=== PATIENT | female | born 1995 | race American Indian/Alaskan Native ===

== ENCOUNTER 2017-07-16 18:56 | Emergency (ER) | payer SELFPAY ==
[2017-07-16] MEDS ORDERED: TYLENOL ONE (19:12)
[2017-07-16] MEDS ORDERED: TYLENOL PO ONE (19:28)
[2017-07-16 19:40] LABS: Basophils % (Auto) 0.4 % (0.0-1.8); Eosinophils % (Auto) 0.7 % (0.0-4.3); Hematocrit 35.4 % (30.3-42.9); Hemoglobin 11.9 gm/dl (10.1-14.3); Mean Corpuscular HGB Conc 33 % (30-34); Mean Corpuscular Hemoglobin 26 pg (28-32); Mean Corpuscular Volume 79 fl (79-97); Red Blood Count 4.49 M/mm3 (3.65-5.03); Red Cell Distribution Width 14.9 % (13.2-15.2); White Blood Count 11.5 K/mm3 (4.5-11.0)
[2017-07-16 19:41] LABS: Platelet Count 173 K/mm3 (140-440)
[2017-07-16 19:50] LABS: INR 0.99 (0.87-1.13)
[2017-07-16 20:02] LABS: Albumin 4.3 g/dL (3.9-5); Alkaline Phosphatase 50 units/L (35-129); Anion Gap 21 mmol/L; Blood Urea Nitrogen 8 mg/dL (7-17); Calcium 9.1 mg/dL (8.4-10.2); Carbon Dioxide 23 mmol/L (22-30); Chloride 97.2 mmol/L (98-107); Glucose 97 mg/dL (65-100); Lipase 30 units/L (13-60); Potassium 4.3 mmol/L (3.6-5.0); Sodium 137 mmol/L (137-145); Total Protein 8.4 g/dL (6.3-8.2)
[2017-07-16 20:09] LABS: Alanine Aminotransferase 23 units/L (7-56)
[2017-07-16 21:20] LABS: Bacteria,Urine 1+ /HPF (Negative); Bilirubin,Urine NEG (Negative); Blood,Urine LG (Negative); Ketones,Urine 20 mg/dL (Negative); Leukocyte Esterase,Urine LG (Negative); Mucus,Urine FEW /HPF; Nitrite,Urine POS (Negative)
[2017-07-17] MEDS ORDERED: ZOFRAN IV ONE (00:20)
[2017-07-17] MEDS ORDERED: TORADOL IV ONE (00:20)
[2017-07-17] MEDS ORDERED: ROCEPHIN/NS 1 GM/50 ML 1 GM/50 ML BAG IV ONE (00:20)
[2017-07-17] MEDS ORDERED: NACL 0.9% 1000 ML 2,000 ML IV ONE (00:20)
[2017-07-17] MEDS ORDERED: MORPHINE IV ONE (00:20)
--- NOTE | 2017-07-17 00:22 | Emergency Department Report ---
ED General Adult HPI - General Chief complaint: Fever Stated complaint: LIGHTHEADED/DIZZINESS/NAUSEA/SORE THROAT Source: patient, RN notes reviewed Mode of arrival: Ambulatory Limitations: No Limitations - History of Present Illness Initial comments: This is a 22-year-old female, she is previously unknown to me, she does not have a local primary care doctor and she denies chronic medical conditions. She complained of sore throat, intravaginal ulcers, mild headache, nausea, generalized weakness, malaise and fatigue. There is no neck pain, there is no neck stiffness. There is no abdominal pain, there is no nausea, vomiting or diarrhea. No irritative or obstructive urinary symptoms. She has one sexual partner, she reports her partner wears condoms, she does not have a history of gonorrhea or chlamydia that she is aware of. -: Gradual Location: genitals Severity scale (0 -10): 4 Consistency: constant Improves with: none Worsens with: none Associated Symptoms: fever/chills, headaches, loss of appetite, malaise, weakness. denies: confusion, chest pain, cough, diaphoresis - Related Data Previous Rx's Medication Instructions Recorded Last Taken Type Ibuprofen [Motrin] 600 mg PO Q8H PRN #30 tablet 07/17/17 Unknown Rx Levofloxacin [Levaquin] 750 mg PO QDAY #10 tablet 07/17/17 Unknown Rx Metoclopramide [Reglan] 10 mg PO QID PRN #30 tablet 07/17/17 Unknown Rx Allergies Allergy/AdvReac Type Severity Reaction Status Date / Time No Known Allergies Allergy Verified 07/16/17 19:19 ED Review of Systems ROS: Stated complaint: LIGHTHEADED/DIZZINESS/NAUSEA/SORE THROAT Other details as noted in HPI Constitutional: fever, malaise, weakness Eyes: denies: vision change ENT: throat pain. denies: epistaxis Respiratory: denies: cough Cardiovascular: denies: chest pain Gastrointestinal: nausea Genitourinary: denies: abnormal menses Skin: lesions Neurological: headache, weakness Psychiatric: anxiety ED Past Medical Hx - Past Medical History Previous Medical History?: No - Surgical History Past Surgical History?: No - Social History Smoking Status: Never Smoker Substance Use Type: None - Medications Home Medications: Home Medications Medication Instructions Recorded Confirmed Last Taken Type Ibuprofen [Motrin] 600 mg PO Q8H PRN #30 tablet 07/17/17 Unknown Rx Levofloxacin [Levaquin] 750 mg PO QDAY #10 tablet 07/17/17 Unknown Rx Metoclopramide [Reglan] 10 mg PO QID PRN #30 tablet 07/17/17 Unknown Rx ED Physical Exam - General Limitations: No Limitations General appearance: alert, in no apparent distress - Head Head exam: Present: atraumatic, normocephalic - Eye Eye exam: Present: normal appearance, PERRL, EOMI. Absent: nystagmus - ENT ENT exam: Present: normal exam, normal orophraynx, mucous membranes moist, normal external ear exam - Neck Neck exam: Present: normal inspection, full ROM. Absent: tenderness, meningismus, lymphadenopathy - Respiratory Respiratory exam: Present: normal lung sounds bilaterally. Absent: respiratory distress, wheezes, rales, rhonchi, stridor, chest wall tenderness, accessory muscle use, decreased breath sounds, prolonged expiratory - Cardiovascular Cardiovascular Exam: Present: normal rhythm, tachycardia, normal heart sounds. Absent: systolic murmur, diastolic murmur, rubs, gallop - GI/Abdominal GI/Abdominal exam: Present: soft, normal bowel sounds. Absent: distended, tenderness, guarding, rebound, rigid, pulsatile mass - Speculum exam: Present: normal speculum exam, vaginal bleeding, other (on the internal vaginal vault, at 3:00 and 9:00, there are painful macerated lesions. There are no vesicles. It appeared to be ulcerated.) Bi-manual exam: Present: normal bi-manual exam, other (escorted by nurse tal brody). Absent: cervical motion tendernes, adnexal tenderness, adnexal mass - Extremities Exam Extremities exam: Present: normal inspection, full ROM, normal capillary refill. Absent: tenderness, pedal edema, joint swelling, calf tenderness - Back Exam Back exam: Present: normal inspection, full ROM. Absent: tenderness, CVA tenderness (R), CVA tenderness (L), muscle spasm, paraspinal tenderness, vertebral tenderness - Neurological Exam Neurological exam: Present: alert, oriented X3 - Psychiatric Psychiatric exam: Present: normal affect, normal mood - Skin Skin exam: Present: warm, dry, intact, normal color. Absent: rash ED Course Vital Signs 07/16/17 07/17/17 07/17/17 19:14 01:41 02:15 Temperature 102.7 F H 99.5 F 98.4 F Pulse Rate 115 H 110 H 106 H Respiratory 20 18 18 Rate Blood Pressure 137/87 129/72 127/72 [Right] O2 Sat by Pulse 100 100 100 Oximetry 07/17/17 04:05 Temperature 98 F Pulse Rate 106 H Respiratory 18 Rate Blood Pressure 127/79 [Right] O2 Sat by Pulse Oximetry ED Medical Decision Making - Lab Data Result diagrams: 07/16/17 19:27 07/16/17 19:27 Vital Signs 07/16/17 07/17/17 07/17/17 19:14 01:41 02:15 Temperature 102.7 F H 99.5 F 98.4 F Pulse Rate 115 H 110 H 106 H Respiratory 20 18 18 Rate Blood Pressure 137/87 129/72 127/72 [Right] O2 Sat by Pulse 100 100 100 Oximetry Labs 07/16/17 07/16/17 07/16/17 19:27 19:27 19:27 WBC 11.5 H RBC 4.49 Hgb 11.9 Hct 35.4 MCV 79 MCH 26 L MCHC 33 RDW 14.9 Plt Count 173 Lymph % (Auto) 9.4 L [place] % (Auto) 7.0 Eos % (Auto) 0.7 Baso % (Auto) 0.4 Lymph # 1.1 L [place] # 0.8 Eos # 0.1 Baso # 0.0 Seg Neutrophils % 82.5 H Seg Neutrophils # 9.5 H PT 13.6 INR 0.99 VBG pH Sodium 137 Potassium 4.3 Chloride 97.2 L Carbon Dioxide 23 Anion Gap 21 BUN 8 Creatinine 0.5 L Estimated GFR > 60 BUN/Creatinine Ratio 16.00 Glucose 97 Lactic Acid Calcium 9.1 Total Bilirubin 1.10 AST 9 ALT 23 Alkaline Phosphatase 50 Total Protein 8.4 H Albumin 4.3 Albumin/Globulin Ratio 1.0 Lipase 30 HCG, Qual Urine Color Urine Turbidity Urine pH Ur Specific [place] Urine Protein Urine Glucose (UA) Urine Ketones Urine Blood Urine Nitrite Urine Bilirubin Urine Urobilinogen Ur Leukocyte Esterase Urine WBC (Auto) Urine RBC (Auto) U Epithel Cells (Auto) Urine Bacteria (Auto) Urine Mucus 07/16/17 07/16/17 07/16/17 19:27 19:27 19:27 WBC RBC Hgb Hct MCV MCH MCHC RDW Plt Count Lymph % (Auto) [place] % (Auto) Eos % (Auto) Baso % (Auto) Lymph # [place] # Eos # Baso # Seg Neutrophils % Seg Neutrophils # PT INR VBG pH 7.431 H Sodium Potassium Chloride Carbon Dioxide Anion Gap BUN Creatinine Estimated GFR BUN/Creatinine Ratio Glucose Lactic Acid 0.90 Calcium Total Bilirubin AST ALT Alkaline Phosphatase Total Protein Albumin Albumin/Globulin Ratio Lipase HCG, Qual Negative Urine Color Urine Turbidity Urine pH Ur Specific [place] Urine Protein Urine Glucose (UA) Urine Ketones Urine Blood Urine Nitrite Urine Bilirubin Urine Urobilinogen Ur Leukocyte Esterase Urine WBC (Auto) Urine RBC (Auto) U Epithel Cells (Auto) Urine Bacteria (Auto) Urine Mucus 07/16/17 20:30 WBC RBC Hgb Hct MCV MCH MCHC RDW Plt Count Lymph % (Auto) [place] % (Auto) Eos % (Auto) Baso % (Auto) Lymph # [place] # Eos # Baso # Seg Neutrophils % Seg Neutrophils # PT INR VBG pH Sodium Potassium Chloride Carbon Dioxide Anion Gap BUN Creatinine Estimated GFR BUN/Creatinine Ratio Glucose Lactic Acid Calcium Total Bilirubin AST ALT Alkaline Phosphatase Total Protein Albumin Albumin/Globulin Ratio Lipase HCG, Qual Urine Color Yellow Urine Turbidity Slightly-cloudy Urine pH 5.0 Ur Specific [place] 1.018 Urine Protein 30 mg/dl Urine Glucose (UA) Neg Urine Ketones 20 Urine Blood Lg Urine Nitrite Pos Urine Bilirubin Neg Urine Urobilinogen 4.0 Ur Leukocyte Esterase Lg Urine WBC (Auto) 127.0 H Urine RBC (Auto) 102.0 U Epithel Cells (Auto) 6.0 Urine Bacteria (Auto) 1+ Urine Mucus Few - Medical Decision Making Differential diagnosis: Urinary tract infection, viral syndrome, pharyngitis, influenza, pyelonephritis Assessment and plan: 22-year-old female with multiple nonspecific complaints, fever, headache, malaise, painful intravaginal lesions. She does not endorse irritative or obstructive urinary symptoms, but her urinalysis is strongly positive/suggestive of urinary tract action. Intravaginal lesions are not consistent with vesicles, they're somewhat painful. may be atypical STD. The patient was treated aggressively with IV fluids, pain medication, nausea medication and she is loaded with 1 g of ceftriaxone. She felt much improved, her tachycardia resolved, and she was able to tolerate liquid feeds. She has intermittent episodes of tachycardia, but she is quite anxious. Clinically doubt bacteremia given her current clinical presentation, blood cultures were ordered prior to my personal evaluation. I do not suspect bacteremia, I do not suspect meningitis based on her history and physical exam, she has no neck pain or neck stiffness, and there are no meningeal signs. She is reliable, she endorses that she will follow up closely as an outpatient. She will be discharged with pain medication, nausea medication, antibiotics , instructions to closely follow up as an outpatient. Critical care attestation.: If time is entered above; I have spent that time in minutes in the direct care of this critically ill patient, excluding procedure time. ED Disposition Clinical Impression: Acute febrile illness Disposition: DC- TO HOME OR SELFCARE Is pt being admited?: No Does the pt Need Aspirin: No Condition: Stable Instructions: Acute Pyelonephritis (ED) Additional Instructions: Cultures were sent today, results will be available in the next 3-5 days. Please have a primary care doctor contact the medical records department to obtain culture results. Take pain medication, nausea medication, antibiotic therapy as directed. Follow up with an outpatient primary care doctor within the next 3-5 days, or outpatient microsoft application developer within the next 3-5 days. The vaginal lesions are nonspecific, they may be an atypical sexually transmitted disease, therefore it is very important to follow-up with an outpatient primary care doctor, microsoft application developer or the health department. Refrain from sexual activity with any partners until cleared by her primary care doctor or microsoft application developer. do not consume alcohol while taking the medication. Return to the ER right away with new pain, worsened pain, migration of pain, fevers, chills, intractable nausea or vomiting, confusion, inability to tolerate liquid feeds. Prescriptions: Ibuprofen [Motrin] 600 mg PO Q8H PRN #30 tablet PRN Reason: Pain Levofloxacin [Levaquin] 750 mg PO QDAY #10 tablet Metoclopramide [Reglan] 10 mg PO QID PRN #30 tablet PRN Reason: Nausea Referrals: PRIMARY CAREMD [Primary Care Provider] - 3-5 Days [facility] [Provider Group] - 3-5 Days [facility] - 3-5 Days [facility] [Provider Group] - [facility] Forms: Accompanied Note, Work/School Release Form(ED)
[2017-07-17] MEDS ORDERED: TYLENOL PO ONE (01:50)
[2017-07-17 04:06] VITALS: BP 127/79
== END 2017-07-17 04:06 | disposition home or self-care (01) ==
LOC: ED 18:56
DX: J02.9 Acute pharyngitis, unspecified (principal); R50.9 Fever, unspecified; R51 Headache; R11.0 Nausea
CPT/HCPCS: 36415; 80053; 81001; 82140; 82805; 83690; 84703; 85025; 85610; 87040; 87086; 87116; 87210; 87400; 87430; 87591; 96365; 96375; 99285; J0696; J1885; J2270; J2405; J7030

== ENCOUNTER 2019-11-19 02:06 | Outpatient (CLI) | payer MEDICAID ==
[2019-11-19] MEDS ORDERED: LACTATED RINGERS 1,000 ML IV ONE ×2 (02:23→03:13)
[2019-11-19 02:48] LABS: Bacteria,Urine 1+ /HPF (Negative); Bilirubin,Urine NEG (Negative); Blood,Urine NEG (Negative); Color,Urine Yellow (Yellow); Mucus,Urine FEW /HPF; Protein,Urine <15 mg/dL mg/dL (Negative)
[2019-11-19] MEDS ORDERED: BETAMET ACET/BETAMET NA PH 6 MG/ML INJ 5 ML MDV IM ONE (04:28)
[2019-11-19] MEDS ORDERED: TERBUTALINE 1 MG/1 ML INJ SUB-Q SCH (05:00)
[2019-11-19 05:49] VITALS: BP 117/57
== END 2019-11-19 06:20 | disposition home or self-care (01) ==
LOC: TRG 02:06
PROVIDERS: ATTEND Obstetrics & Gynecology
DX: O62.9 Abnormality of forces of labor, unspecified (principal); Z3A.35 35 weeks gestation of pregnancy
CPT/HCPCS: 59025; 81001; 96360; 96361; 96372; J0702; J3105; J7120

== ENCOUNTER 2019-11-20 22:03 | Outpatient (CLI) | payer MEDICAID ==
[2019-11-20] MEDS ORDERED: LACTATED RINGERS 1,000 ML IV ONE (22:24)
[2019-11-20 22:59] LABS: Bilirubin,Urine NEG (Negative); Blood,Urine MOD (Negative); Color,Urine Yellow (Yellow); Mucus,Urine FEW /HPF
[2019-11-20 23:00] VITALS: BP 121/66
[2019-11-20] MEDS ORDERED: BETAMET ACET/BETAMET NA PH 6 MG/ML INJ 5 ML MDV IM ONE (23:15)
== END 2019-11-20 23:40 | disposition home or self-care (01) ==
LOC: TRG 22:03
PROVIDERS: ATTEND Obstetrics & Gynecology
DX: O42.913 Preterm premature rupture of membranes, unspecified as to length of time between rupture and onset of labor, third trimester (principal); O99.343 Other mental disorders complicating pregnancy, third trimester; F32.9 Major depressive disorder, single episode, unspecified; Z3A.35 35 weeks gestation of pregnancy
CPT/HCPCS: 59025; 81001; 87086; 96372; J0702

== ENCOUNTER 2021-03-06 18:39 | Outpatient (CLI) | payer MEDICAID ==
[2021-03-06 20:06] VITALS: BP 127/71
[2021-03-06 20:07] LABS: Bacteria,Urine 4+ /HPF (Negative); Bilirubin,Urine NEG (Negative); Blood,Urine NEG (Negative); Color,Urine Yellow (Yellow); Mucus,Urine FEW /HPF; Protein,Urine <15 mg/dL mg/dL (Negative)
[2021-03-06] MEDS ORDERED: LACTATED RINGERS 1,000 ML IV SCH (20:15)
[2021-03-06] MEDS ORDERED: NITROFURANTOIN MONOHYD/M-CRYST 100 MG CAP PO ONE (21:40)
--- NOTE | 2021-03-06 21:59 | Ultrasound Report ---
ULTRASOUND OBSTETRIC LIMITED ULTRASOUND BIOPHYSICAL PROFILE INDICATION / CLINICAL INFORMATION: ANKIT. Clinical Gestational Age (GA): 39.3 weeks.days COMPARISON: None available. FINDINGS: BREATHING MOVEMENT = 2 GROSS BODY MOVEMENT = 2 TONE = 2 QUALITATIVE AMNIOTIC FLUID VOLUME = 2 TOTAL BIOPHYSICAL SCORE = 8/8 HEART RATE (beats per minute): 140 AMNIOTIC FLUID INDEX (cm) = 6.5 (normal = 7-24 cm) PRESENTATION: Cephalic. ADDITIONAL FINDINGS: None. IMPRESSION: 1. Biophysical Score = 8/8 2. Oligohydramnios with ANKIT just below the lower limits of normal. Signer Name: Marino Martinez MD Signed: 03/06/2021 9:54 PM Workstation Name: [id number]
== END 2021-03-06 22:40 | disposition home or self-care (01) ==
LOC: TRG 18:39 → APU 18:41 → TRG 22:40
PROVIDERS: ATTEND Obstetrics & Gynecology
DX: O23.43 Unspecified infection of urinary tract in pregnancy, third trimester (principal); Z3A.39 39 weeks gestation of pregnancy
CPT/HCPCS: 76815; 76819; 81001; 87086; J7120

== ENCOUNTER 2022-01-17 13:49 | Emergency (ER) | payer MEDICAID ==
[2022-01-17 16:03] LABS: Bilirubin,Urine NEG (Negative); Blood,Urine MOD (Negative); Color,Urine Yellow (Yellow); Mucus,Urine FEW /HPF; Protein,Urine <15 mg/dL mg/dL (Negative); Urobilinogen,Urine < 2.0 mg/dL (<2.0)
--- NOTE | 2022-01-17 16:11 | Emergency Department Report ---
ED Female HPI - General Chief complaint: Urogenital-Female Stated complaint: UTI Time Seen by Provider: 01/17/22 14:30 Source: patient Mode of arrival: Ambulatory Limitations: No Limitations - History of Present Illness Initial comments: 26-year-old black female presents to the emergency department for evaluation of dysuria and lower abdominal pain. She states that she ate some [place] food yesterday that caused her to have some nausea but when she woke up this morning she had dysuria and lower abdominal pain which is consistent with what she feels like when she usually gets a urinary tract infection. She denies fever at this time. She states that she is currently on her menstrual cycle. Complaint: dysuria -: Gradual, days(s) (1) Location: suprapubic, LLQ Radiation: non-radiating Severity scale (0 -10): 4 Quality: aching Consistency: intermittent Are you Now?: No Last Menstrual Period: 01/17/22 EDC: 10/24/22 Associated Symptoms: abdominal pain, nausea/vomiting, dysuria. denies: vaginal discharge, fever/chills, headaches, loss of appetite, hematuria, rash, seizure, shortness of breath, syncope, weakness - Related Data Sexually active: Yes Previous Rx's Medication Instructions Recorded Last Taken Type HYDROcodone/APAP 5-325 [[place] 1 each PO Q6HR PRN #15 tablet 03/09/21 Unknown Rx 5/325] Ibuprofen [Motrin] 800 mg PO Q8HR PRN #30 tablet 03/09/21 Unknown Rx Nitrofurantoin Pierce/M-Cryst 100 mg PO Q12HR #14 capsule 01/17/22 Unknown Rx [Macrobid CAP] Allergies Allergy/AdvReac Type Severity Reaction Status Date / Time No Known Allergies Allergy Verified 03/08/21 07:55 ED Review of Systems ROS: Stated complaint: UTI Other details as noted in HPI Comment: All other systems reviewed and negative Constitutional: denies: chills, diaphoresis, fever, malaise, weakness Eyes: denies: eye pain ENT: denies: ear pain Respiratory: denies: cough, shortness of breath, SOB with exertion, SOB at rest Cardiovascular: denies: chest pain, palpitations, dyspnea on exertion, edema, syncope, paroxysmal nocturnal dyspnea Endocrine: no symptoms reported Gastrointestinal: abdominal pain, nausea, diarrhea. denies: vomiting, constipation, hematemesis, melena, hematochezia Genitourinary: dysuria, frequency. denies: urgency, hematuria, discharge, abnormal menses, dyspareunia Musculoskeletal: denies: back pain Skin: denies: rash, lesions Neurological: denies: headache, weakness, numbness, paresthesias, abnormal gait, vertigo Psychiatric: denies: anxiety, depression Hematological/Lymphatic: denies: easy bleeding, easy bruising ED Past Medical Hx - Past Medical History Hx Hypertension: No Hx Heart Attack/AMI: No Hx Congestive Heart Failure: No Hx Diabetes: No Hx Deep Vein Thrombosis: No Hx Liver Disease: No Hx Renal Disease: No Hx Sickle Cell Disease: No Hx Seizures: No Hx Asthma: No Hx COPD: No Hx HIV: No - Surgical History Hx Pacemaker: No Hx Internal Defibrillator: No - Social History Smoking Status: Never Smoker - Medications Home Medications: Home Medications Medication Instructions Recorded Confirmed Last Taken Type HYDROcodone/APAP 5-325 [[place] 1 each PO Q6HR PRN #15 tablet 03/09/21 Unknown Rx 5/325] Ibuprofen [Motrin] 800 mg PO Q8HR PRN #30 tablet 03/09/21 Unknown Rx Nitrofurantoin [place]/M-Cryst 100 mg PO Q12HR #14 capsule 01/17/22 Unknown Rx [Macrobid CAP] ED Physical Exam - General Limitations: No Limitations General appearance: alert, in no apparent distress - Head Head exam: Present: atraumatic, normocephalic - Eye Eye exam: Present: normal appearance. Absent: conjunctival injection - Neck Neck exam: Present: normal inspection. Absent: tenderness - Respiratory Respiratory exam: Present: normal lung sounds bilaterally. Absent: respiratory distress, wheezes, rales, rhonchi, stridor, chest wall tenderness, accessory muscle use - Cardiovascular Cardiovascular Exam: Present: tachycardia, normal heart sounds - GI/Abdominal GI/Abdominal exam: Present: soft, normal bowel sounds. Absent: distended, tenderness (Suprapubic area), guarding, rigid - Extremities Exam Extremities exam: Present: normal inspection - Back Exam Back exam: Present: normal inspection. Absent: tenderness, CVA tenderness (R), CVA tenderness (L) - Neurological Exam Neurological exam: Present: alert, oriented X3 - Psychiatric Psychiatric exam: Present: normal affect, normal mood - Skin Skin exam: Present: warm, dry, intact, normal color ED Course Vital Signs 01/17/22 14:20 Temperature 98.7 F Pulse Rate 101 H Respiratory 18 Rate Blood Pressure 125/66 [Right] O2 Sat by Pulse 99 Oximetry ED Medical Decision Making - Medical Decision Making 26-year-old black female presents to the emergency department for evaluation of dysuria and lower abdominal pain. She states that she ate some [place] food yesterday that caused her to have some nausea but when she woke up this morning she had dysuria and lower abdominal pain which is consistent with what she feels like when she usually gets a urinary tract infection. She denies fever at this time. She states that she is currently on her menstrual cycle. UA positive for urinary tract infection. Patient will be treated with 7-day course of Macrobid 100 mg p.o. twice daily. She was advised to drink plenty of fluids take medication as prescribed. And follow-up with primary care provider if no improvement or worsening symptoms. She verbalized understanding of and agreement with plan of care. Critical care attestation.: If time is entered above; I have spent that time in minutes in the direct care of this critically ill patient, excluding procedure time. ED Disposition Clinical Impression: UTI (urinary tract infection) Qualifiers: Urinary tract infection type: acute cystitis Hematuria presence: with hematuria Qualified Code(s): N30.01 - Acute cystitis with hematuria Disposition: HOME / SELF CARE / HOMELESS Is pt being admited?: No Does the pt Need Aspirin: No Condition: Stable Instructions: Urinary Tract Infection, Adult, [id number] Additional Instructions: Take medications as prescribed. Follow-up with primary care provider if no improvement or worsening symptoms. Prescriptions: Nitrofurantoin [place]/M-Cryst [Macrobid CAP] 100 mg PO Q12HR #14 capsule Referrals: SONY HUTCHINS MD [Referring] - 3-5 Days Time of Disposition: 16:10
[2022-01-17 16:31] VITALS: BP 118/76
== END 2022-01-17 16:33 | disposition home or self-care (01) ==
LOC: ED 13:49
DX: N39.0 Urinary tract infection, site not specified (principal)
CPT/HCPCS: 81001; 87086; 99283